=== PATIENT | female | born 1970 | race Caucasian/White ===

== ENCOUNTER 2023-07-04 12:00 | Day surgery (SDC) | payer BC ==
[~2023-07-04 12:00] MED LIST: Lactated Ringers 1,000 ML IV SCH
[2023-07-04] MEDS ORDERED: Lidocaine 2% 5 ML SDV ONE (12:52)
[2023-07-04] MEDS ORDERED: Propofol 200 MG/20 ML SDV ONE (12:53)
[2023-07-04] MEDS ORDERED: Lactated Ringers 1,000 ML IV SCH (13:45)
== END 2023-07-04 14:08 | disposition home or self-care (01) ==
LOC: MW.SDS 12:00
PROVIDERS: ATTEND Surgery
DX: K57.30 Diverticulosis of large intestine without perforation or abscess without bleeding (principal); E11.9 Type 2 diabetes mellitus without complications; E78.5 Hyperlipidemia, unspecified; E66.01 Morbid (severe) obesity due to excess calories; Z80.0 Family history of malignant neoplasm of digestive organs; Z88.2 Allergy status to sulfonamides; Z79.85 Long-term (current) use of injectable non-insulin antidiabetic drugs; Z79.899 Other long term (current) drug therapy; Z87.891 Personal history of nicotine dependence; Z68.41 Body mass index [BMI] 40.0-44.9, adult
CPT/HCPCS: 45378; J2704; J7120; J3490